=== PATIENT | male | born 1950 | race Caucasian/White ===

== ENCOUNTER 2021-08-07 05:08 | Emergency (ER) | payer OTHER ==
[~2021-08-07 05:08] MED LIST: ALLOPURINOL300 MG PO; FLEXERIL10 MG PO; LEVO-T75 MCG PO; LOPRESSOR25 MG PO; NEXIUM 40MG CAP40 MG PO; NORCO 5-325 TA1 EACH PO; VITAMIN B-125000 MC1 PO; VITAMIN D35000 UNIT PO
[2021-08-07 05:47] LABS: BASOPHIL 0.2 % (0-2); EOSINOPHIL 0 % (0-7); HCT 48.8 % (42.0-52.0); HGB 17.1 g/dl (13.2-18.0); LYMPHOCYTE 33.4 % (15-48); MCH 30.4 pg (25.0-31.0); MCV 86.8 fL (78.0-100.0); MPV 10.1 fL (6.0-9.5); NEUTROPHIL 55.7 % (41-80); NRBC 0; PLT 178 K/uL (150-400); RBC 5.62 M/uL (4.70-6.00); RDW 12.6 % (11.5-14.0)
[2021-08-07 06:07] LABS: LACTIC ACID 1.6 mmol/L (0.4-1.9)
[2021-08-07 06:15] LABS: ALBUMIN 3.8 g/dL (3.4-5.0); BILIRUBIN - TOTAL 0.8 mg/dL (0.2-1.0); CREATININE 0.87 mg/dL (0.67-1.17); GLOBULIN (CALCULATION) 4.1 g/dL; POTASSIUM 3.5 mmol/L (3.5-5.1); TOTAL PROTEIN 7.9 g/dL (6.4-8.2)
[2021-08-07 08:26] LABS: BILIRUBIN NEGATIVE (NEGATIVE); BLOOD TRACE-INTACT Ery/uL (NEGATIVE); CLARITY CLEAR (CLEAR); GLUCOSE (U) NORMAL (NORMAL); LEUKOCYTES NEGATIVE Leu/uL (NEGATIVE); NITRITE NEGATIVE (NEGATIVE); PROTEIN 2+ mg/dL (NEGATIVE); SPECIFIC GRAVITY >=1.030 (1.001-1.030); UROBILINOGEN 0.2 mg/dL (0.2-1.0)
[2021-08-07 08:45] LABS: COLOR AMBER (YELLOW); SPERM PRESENT
[2021-08-07] MEDS ORDERED: CEFDINIR300 MG PO (11:23)
[2021-08-07] MEDS ORDERED: AZITHROMYCIN250 MG PO (11:23)
== END 2021-08-07 11:42 | disposition home or self-care (01) ==
LOC: FER 05:08
PROVIDERS: Emergency Medicine Emergency Medical Services
DX: U07.1 COVID-19 (principal); J12.82 Pneumonia due to coronavirus disease 2019; E11.9 Type 2 diabetes mellitus without complications; I10 Essential (primary) hypertension; Z79.84 Long term (current) use of oral hypoglycemic drugs; Z79.899 Other long term (current) drug therapy
CPT/HCPCS: 36415; 36600; 71045; 80053; 81001; 82728; 82803; 83605; 83880; 84145; 84484; 85025; 85379; 87040; 87088; 93005; 94640; 94664; J0456; J0696; J7050; J7120; U0002

== ENCOUNTER 2021-08-08 18:07 | Inpatient (IN) | payer OTHER ==
[~2021-08-08] VITALS: Ht 177.8 cm; Wt 81.4 kg
[~2021-08-08 18:07] MED LIST changes: +AZITHROMYCIN250 MG PO; +CEFDINIR300 MG PO
[2021-08-08 19:58] LABS: BASOPHIL 0.3 % (0-2); HCT 47.3 % (42.0-52.0); HGB 16.3 g/dl (13.2-18.0); LYMPHOCYTE 21.6 % (15-48); MCHC 34.5 g/dL (32.0-36.0); MCV 87.1 fL (78.0-100.0); MONOCYTE 8.9 % (0-12); MPV 10.5 fL (6.0-9.5); NEUTROPHIL 66.5 % (41-80); NRBC 0; PLT 179 K/uL (150-400); RBC 5.43 M/uL (4.70-6.00); RDW 12.6 % (11.5-14.0); WBC 5.9 K/uL (4.0-10.5)
[2021-08-08 20:11] LABS: CREATININE 0.73 mg/dL (0.67-1.17); POTASSIUM 3.4 mmol/L (3.5-5.1)
[2021-08-08 23:14] LABS: C-REACTIVE PROTEIN 7.8 mg/dL (<=0.90)
[2021-08-09 00:53] LABS: INR 1.34 (0.9-1.2); PROTHROMBIN TIME 15.9 SECONDS (11.8-13.4); PTT 36.4 SECONDS (24.4-34.7)
[2021-08-09] MEDS ORDERED: SYNTHROID88 MCG PO (01:36)
[2021-08-09] MEDS ORDERED: AMARYL2 MG PO (01:36)
[2021-08-09] MEDS ORDERED: DIOVAN80 MG PO (01:39)
[2021-08-09] MEDS ORDERED: COLESTID 1GM TAB1 GM PO (01:39)
[2021-08-09 02:26] LABS: FLU B NEGATIVE B (NEGATIVE B)
[2021-08-09 06:57] LABS: BASOPHIL 0.3 % (0-2); EOSINOPHIL 0 % (0-7); HCT 46.3 % (42.0-52.0); HGB 15.9 g/dl (13.2-18.0); LYMPHOCYTE 27.3 % (15-48); MCH 30.5 pg (25.0-31.0); MCHC 34.3 g/dL (32.0-36.0); MCV 88.7 fL (78.0-100.0); MPV 9.9 fL (6.0-9.5); NEUTROPHIL 67.9 % (41-80); NRBC 0; PLT 166 K/uL (150-400); RBC 5.22 M/uL (4.70-6.00); RDW 12.7 % (11.5-14.0)
[2021-08-09 07:25] LABS: ALBUMIN 2.9 g/dL (3.4-5.0); BILIRUBIN - TOTAL 0.5 mg/dL (0.2-1.0); BUN/CREAT RATIO (CALC) 28.9 RATIO; CREATININE 0.76 mg/dL (0.67-1.17); GLOBULIN (CALCULATION) 4.1 g/dL; POTASSIUM 3.5 mmol/L (3.5-5.1)
[2021-08-09 07:33] LABS: CHOLESTEROL 76 mg/dL (<200); HDL 22 mg/dL (40-60); LDL - DIRECT 46 mg/dL (<100); TRIGLYCERIDES 61 mg/dL (<150)
[2021-08-10 07:12] LABS: BASOPHIL 0 % (0-2); EOSINOPHIL 0 % (0-7); HCT 42.7 % (42.0-52.0); HGB 14.9 g/dl (13.2-18.0); LYMPHOCYTE 10.1 % (15-48); MCH 30.5 pg (25.0-31.0); MCHC 34.9 g/dL (32.0-36.0); MCV 87.3 fL (78.0-100.0); MONOCYTE 6.5 % (0-12); MPV 10.4 fL (6.0-9.5); NEUTROPHIL 82.5 % (41-80); NRBC 0; PLT 199 K/uL (150-400); RBC 4.89 M/uL (4.70-6.00); RDW 12.8 % (11.5-14.0)
[2021-08-10 07:15] LABS: BUN/CREAT RATIO (CALC) 34.3 RATIO; CREATININE 0.67 mg/dL (0.67-1.17); POTASSIUM 3.1 mmol/L (3.5-5.1); WBC 11.3 K/uL (4.0-10.5)
[2021-08-11 06:33] LABS: BASOPHIL 0.1 % (0-2); EOSINOPHIL 0 % (0-7); HCT 41.2 % (42.0-52.0); HGB 14.6 g/dl (13.2-18.0); LYMPHOCYTE 12.8 % (15-48); MCH 30.4 pg (25.0-31.0); MCHC 35.4 g/dL (32.0-36.0); MCV 85.8 fL (78.0-100.0); MONOCYTE 7.4 % (0-12); MPV 9.9 fL (6.0-9.5); NEUTROPHIL 78.9 % (41-80); NRBC 0; PLT 207 K/uL (150-400); RDW 12.7 % (11.5-14.0); WBC 10.4 K/uL (4.0-10.5)
[2021-08-11 06:55] LABS: BUN/CREAT RATIO (CALC) 33.9 RATIO; CREATININE 0.62 mg/dL (0.67-1.17); POTASSIUM 3.5 mmol/L (3.5-5.1)
[2021-08-11] MEDS ORDERED: DEXAMETHASONE 2M2 MG PO ×2 (13:22→16:00)
== END 2021-08-11 15:03 | disposition home or self-care (01) | DRG 177 ==
LOC: FER 18:07 → FMS 22:36
PROVIDERS: Allergy & Immunology; Family Medicine; Nurse Practitioner Family; ADMIT Internal Medicine
PROC: XW033E5 Introduction of Remdesivir Anti-infective into Peripheral Vein, Percutaneous Approach, New Technology Group 5 (ICD-10-PCS; principal; 2021-08-08)
PROC: 8E0ZXY6 Isolation (ICD-10-PCS; 2021-08-08)
DX: U07.1 COVID-19 (principal); J12.82 Pneumonia due to coronavirus disease 2019; J96.01 Acute respiratory failure with hypoxia; E87.6 Hypokalemia; Z66 Do not resuscitate; I10 Essential (primary) hypertension; K21.9 Gastro-esophageal reflux disease without esophagitis; E11.65 Type 2 diabetes mellitus with hyperglycemia; E03.9 Hypothyroidism, unspecified; Z88.5 Allergy status to narcotic agent; Z88.1 Allergy status to other antibiotic agents; Z98.890 Other specified postprocedural states; Z79.899 Other long term (current) drug therapy; Z79.84 Long term (current) use of oral hypoglycemic drugs
CPT/HCPCS: 36415; 36600; 71045; 71275; 80048; 80053; 80061; 82803; 82962; 83605; 83735; 84443; 84484; 85025; 85379; 85610; 85730; 86140; 87804; 87899; 93005; 94010; 94640; 94760; 97162; 97166; 97530-GP; 97535; C9399; J1100; J1650; J2930; J3480; J7030; J7050; J8540; Q9967